=== PATIENT | male | born 1945 | race Caucasian/White ===

== ENCOUNTER → 2017-07-18 15:54 | Outpatient (CLI) | payer MEDICARE, SELFPAY | PROVIDERS: Visit Provider Otolaryngology | DX: J02.9 Acute pharyngitis, unspecified (principal) | CPT/HCPCS: 87070 ==

== ENCOUNTER → 2025-04-14 | Outpatient (CLI) | payer MEDICARE, SELFPAY ==
[2025-04-14 16:56] LABS: AST(SGOT) 30 U/L (<=37); Alanine Aminotransfer ALT/SGPT 33 U/L (<=46); Albumin, Serum 4.3 g/dL (3.4-4.8); Alkaline Phosphatase 55 U/L (40-129); Anion Gap 9 (5-15); BUN 11 mg/dL (4-19); BUN/Creat Ratio 14.5 RATIO (10-20); Calcium,Total 9.3 mg/dL (7.6-11.0); Carbon Dioxide 30.6 mmol/L (21.0-32.0); Chloride 100 mmol/L (98-108); Globulin 2.0 g/dL (2.2-4.2); Glucose 106 mg/dL (70-99); Potassium 4.2 mmol/L (3.3-5.1); T4 Total, Thyroxin 7.1 ug/dL (4.5-12.1)
== END | disposition home or self-care (01) ==
PROVIDERS: PCP Student in an Organized Health Care Education/Training Program; Referring Provider Internal Medicine Gastroenterology; Visit Provider Internal Medicine Gastroenterology
DX: R10.9 Unspecified abdominal pain (principal); R63.4 Abnormal weight loss
CPT/HCPCS: 36415; 80053; 84436; 84443